=== PATIENT | male | born 1995 | race African-American/Black ===

== ENCOUNTER 2017-05-05 09:06 | Emergency (ER) | payer OTHER ==
[~2017-05-05] VITALS: Ht 185.4 cm; Wt 79.4 kg
--- NOTE | ~2017-05-05 | CR109 ---
[facility] A Service of [facility] RADIOLOGY TEXT RESULTS PATIENT: RONALDO PHELAN LOCATION: [place] : [id number] UNIT #: [id number] AGE: [address]: Tej Hannah SEX: M ORDER DR: [id number] [facility] [address] [place], [place] [address] [id number] MR#: [id number] Acc #: [id number] NAME: RONALDO PHELAN : 1995 SEX: M STUDY DATE/TIME: 05/05/2017 UNIT: [place] ROOM: STUDY DESCRIPTION: CR Finger 2 View 2nd Rt Attending Physician: Tej Hannah Primary Care Physician: No Primary Care Physician MEDICAL IMAGING REPORT This report is preliminary unless electronic signature is present EXAM Right second finger 3 views 05/05/2017 09:55 hours HISTORY Pain with laceration distal right second finger. Injured with broken Elder jar in hand COMPARISON None. FINDINGS AP, lateral and oblique views demonstrate no fracture, dislocation or foreign body. IMPRESSION No fracture, dislocation or foreign body in this right second finger. Dictated by... Jacquelyn Ha M.D. THIS IS AN ELECTRONICALLY VERIFIED REPORT Jacquelyn Ha M.D. at 05/05/2017 2:31 PM [place] TD: 05/05/2017 12:33 JOB #: [id number] MEDICAL IMAGING REPORT Page 1 of 1 COPY
== END 2017-05-05 11:24 | disposition home or self-care (01) ==
LOC: CED 09:06
DX: S61.210A Laceration without foreign body of right index finger without damage to nail, initial encounter (principal); W25.XXXA Contact with sharp glass, initial encounter
CPT/HCPCS: 12001; 73140; 99283